=== PATIENT | male | born 1995 | race Caucasian/White ===

== ENCOUNTER 2016-09-05 21:35 | Emergency (ER) | payer SELFPAY ==
--- NOTE | 2016-09-11 07:42 | ER ---
ADMIT: 09/05/2016 RM/LOC: ER [facility] MR#: [id number] [id number] [place], [place] [id number] BAYLEE BARON [address] [facility] [address] [place] [address] Emergency Room Report SEX: M AGE: 20 : 1995 DATE: 09/05/2016 ADDENDUM: HISTORY OF PRESENT ILLNESS: This patient comes to the ER because he has had pain in his ribs for the last year, it comes and goes, and it starts in the left rib and ends upon the right rib, and both of them are underneath the axilla. He has seen Dr. Nelson for this in the past and Dr. Nelson did an MRI, which was normal. PHYSICAL EXAMINATION: GENERAL: This is an alert, tall 20-year-old, white male. LUNGS: Clear. I am able to reproduce the pain on both of his sides. The pain is on the axillary line, I see no swelling or bruising. LABORATORY AND IMAGING DATA: Chest x-ray was normal. Blood work was normal. DIAGNOSIS: Bilateral rib pain. PLAN: He was given Toradol 60 mg IM, which did help with his pain. I wrote a prescription for meloxicam 7.5 mg and he should follow up with Dr. Nelson as needed. Please see my T-sheet. TYREE Hein / Severiano Giles MD / modl JOB #: [id number] CC: Severiano Giles MD, Attending Physician Gerry Nelson MD, Family Physician
== END 2016-09-05 23:00 | disposition home or self-care (01) ==
LOC: ER 21:35
DX: R07.81 Pleurodynia (principal)